=== PATIENT | female | born 1975 | race Caucasian/White ===

== ENCOUNTER 2016-10-30 08:54 | Emergency (ER) | payer SELFPAY ==
[~2016-10-30] VITALS: Ht 157.5 cm; Wt 63.0 kg
[~2016-10-30 08:54] MED LIST: NO HOME MEDS
[2016-10-30 10:13] LABS: MCHC 32.4 G/DL (30.0-36.0); MCV 89.4 FL (83-99); PLATELET COUNT 242 K/uL (156-360); RBC DIS.WIDTH-CV 12.8 % (11.8-14.6); RBC DIS.WIDTH-SD 41.5 % (39-53); RED BLOOD COUNT 4.14 M/uL (3.80-5.20); WHITE BLOOD COUNT 5.6 K/uL (4.1-10.2)
[2016-10-30 10:22] LABS: CHLORIDE 109 mEq/L (99-109); POTASSIUM 3.9 mEq/L (3.7-5.4); SODIUM 140 mEq/L (136-147)
[2016-10-30 10:24] LABS: GLUCOSE 78 mg/dL (70-99)
[2016-10-30 10:25] LABS: ANION GAP 8 MEQ/L (2-14)
[2016-10-30 10:28] LABS: GFR ESTIMATE (CALCULATED) > 59 mL/min/; UREA NITROGEN (BUN) 7 mg/dL (9-23)
[2016-10-30 10:42] LABS: QUANTITATIVE HCG < 4.0 MIU/ML
[2016-10-30 10:46] LABS: TROP-I INTERPRETATION NEGATIVE; TROPONIN-I < 0.01 ng/mL (0.0-0.30)
[2016-10-30 11:50] VITALS: BP 109/77
== END 2016-10-30 11:51 | disposition home or self-care (01) ==
LOC: EME 08:54
PROVIDERS: Nurse Practitioner Family
DX: R00.2 Palpitations (principal); R07.89 Other chest pain; I34.1 Nonrheumatic mitral (valve) prolapse
CPT/HCPCS: 71020; 80048; 84443; 84484; 84702; 85027; 93005; 99281; 99283

== ENCOUNTER → 2017-05-09 | Emergency (ER) | payer SELFPAY ==
[~2017-05-09] VITALS: Ht 160 cm; Wt 61.6 kg
[~2017-05-09] MED LIST changes: +NAPROXEN500 MG PO
[2017-05-09 10:08] VITALS: BP 118/74
== END | disposition home or self-care (01) ==
LOC: EME 08:54
PROC: 2W3HX1Z Immobilization of Left Thumb using Splint (ICD-10-PCS; principal; 2017-05-09)
DX: S63.602A Unspecified sprain of left thumb, initial encounter (principal); Y08.89XA Assault by other specified means, initial encounter; Z88.2 Allergy status to sulfonamides; Z88.5 Allergy status to narcotic agent; Z88.1 Allergy status to other antibiotic agents
CPT/HCPCS: 73140; 99281; 99283